=== PATIENT | male | born 1960 | race Caucasian/White ===

== ENCOUNTER 2017-08-12 12:14 | Emergency (ER) | payer SELFPAY ==
[~2017-08-12] VITALS: Ht 182.9 cm; Wt 122.5 kg
[~2017-08-12 12:14] MED LIST: AMLO10TA4; HCT25T; LISI40TA; NIAC1TBM5; OLME40TA14
[2017-08-12] MEDS ORDERED: METF1000 (12:25)
[2017-08-12] MEDS ORDERED: KETOROLAC 30 MG/ML VIAL IVP ONE (12:30)
[2017-08-12 12:33] LABS: BASOPHILS % (AUTO) 0 % (0-10); EOSINOPHILS # (AUTO) 0.1 10^3/uL (0.0-0.3); EOSINOPHILS % (AUTO) 1 % (0-10); HEMATOCRIT 43 % (40-54); HEMOGLOBIN 14.9 G/DL (13.3-17.7); LYMPHOCYTES # (AUTO) 1.6 X 10^3 (1.0-4.0); LYMPHOCYTES % (AUTO) 17 % (12-44); MEAN CORPUSCULAR HEMOGLOBIN 30 PG (25-34); MEAN CORPUSCULAR HGB CONC 35 G/DL (32-36); MEAN CORPUSCULAR VOLUME 86 FL (80-99); MEAN PLATELET VOLUME 9.6 FL (7.4-10.4); MONOCYTES # (AUTO) 0.8 X 10^3 (0.0-1.0); MONOCYTES % (AUTO) 8 % (0-12); NEUTROPHILS # (AUTO) 7.1 X 10^3 (1.8-7.8); NEUTROPHILS % (AUTO) 74 % (42-75); PLATELET COUNT 340 10^3/uL (130-400); RED BLOOD COUNT 4.92 10^6/uL (4.35-5.85); RED CELL DISTRIBUTION WIDTH 13.8 % (10.0-14.5); WHITE BLOOD COUNT 9.6 10^3/uL (4.3-11.0)
--- NOTE | 2017-08-12 12:35 | ED Upper Extremity ---
General Chief Complaint: Upper Extremity Stated Complaint: LEFT HAND PAIN/SWELLING Nursing Triage Note: AMB TO ROOM WITH C/O PAIN SWELLING IN L HAND NO INJURY Nursing Sepsis Screen: No Definite Risk History of Present Illness Date Seen by Provider: Aug 12, 2017 Time Seen by Provider: 12:29 Initial Comments Patient is a 57-year-old male who presents to emergency room today with complaints of left wrist pain. His left wrist is swollen tender to touch and pain with movement. Patient reports having similar episode of swelling and pain one month ago and he was seen by [facility] and [facility] in [place]. Patient reports not having a definite diagnosis but the symptoms did resolve within a few days and his he reports his wrist swelling returned to normal and the pain subsided. This particular episode began 2-3 days ago. No other joints are affected. No fevers or chills. No injury to the wrist. Onset: other Severity: moderate Pain/Injury Location: left wrist Method of Injury: unknown Modifying Factors: Worse With Movement Allergies and Home Medications Allergies Coded Allergies: No Known Drug Allergies (Verified Allergy, Unknown, 04/21/09) Home Medications Amlodipine Besylate 10 Mg Tablet, (Reported) Hydrochlorothiazide 25 Mg Tab, (Reported) Lisinopril 40 Mg Tablet, (Reported) Metformin HCl 1,000 Mg Tablet, (Reported) Naproxen Sodium 550 Mg Tablet, 550 MG PO BID for 10 Days, #14 Prescribed by: FALLON MCCARTNEY on 08/12/17 1338 Niacin/Simvastatin 1 Each Tbmp.24hr, (Reported) Olmesartan Medoxomil 40 Mg Tablet, (Reported) Constitutional: no symptoms reported, see HPI, No chills, No fever EENTM: see HPI, no symptoms reported Respiratory: no symptoms reported, see HPI Cardiovascular: no symptoms reported, see HPI Gastrointestinal: no symptoms reported, see HPI Genitourinary: no symptoms reported, see HPI Musculoskeletal: see HPI, joint pain, joint swelling (left wrist), other ( redness and pain to the left wrist) Skin: no symptoms reported, see HPI Psychiatric/Neurological: No Symptoms Reported, See HPI Past [id number]-Pfaack-Xgwfuy Hx Patient Social History Alcohol Use: Denies Use Recreational Drug Use: No Smoking Status: Never a Smoker Recent Foreign Travel: No Contact w/Someone Who Travel: No Recent Infectious Disease Expo: No Surgeries History of Surgeries: Yes (LUNG BIOSPY HERNIA ) Surgeries: Orthopedic Respiratory History of Respiratory Disorde: No Cardiovascular History of Cardiac Disorders: Yes Cardiac Disorders: Hypertension Neurological History of Neurological Disord: No Reproductive System Hx Reproductive Disorders: No Sexually Transmitted Disease: No Gastrointestinal History of Gastrointestinal Di: No Musculoskeletal History of Musculoskeletal Dis: No Endocrine History of Endocrine Disorders: Yes Integumentary History of Skin or Integumenta: No Blood Transfusions History of Blood Disorders: No Physical Exam Vital Signs Vital Signs - First Documented 08/12/17 12:17 Temp 98.8 Pulse 102 Resp 18 B/P (MAP) 124/92 (103) Pulse Ox 98 Capillary Refill : Less Than 3 Seconds General Appearance: WD/WN, no apparent distress HEENT: PERRL/EOMI Neck: non-tender, full range of motion Cardiovascular: normal peripheral pulses, regular rate, rhythm, no edema, no gallop, no JVD, no murmur Respiratory: chest non-tender, lungs clear, normal breath sounds, no respiratory distress Gastrointestinal: normal bowel sounds, non tender Back: normal inspection Shoulder: normal inspection, non-tender, no evidence of injury Elbow/Forearm: normal inspection, non-tender, no evidence of injury, normal ROM Wrist: Yes limited ROM, Yes pain, Yes soft tissue tenderness, Yes swelling ( normal capillary refill and sensation of the left wrist.) Hand: normal inspection, non-tender Neurologic/Tendon: normal sensation Splinting and Joint Reduction : Splints: Cock-up Wrist (applied to left wrist for support and limited mobility.) Progress/Results/Core Measures Results/Orders Lab Results Laboratory Tests Test 08/12/17 12:27 Range/Units White Blood Count 9.6 4.3-11.0 10^3/uL Red Blood Count 4.92 4.35-5.85 10^6/uL Hemoglobin 14.9 13.3-17.7 G/DL Hematocrit 43 40-54 % Mean Corpuscular Volume 86 80-99 FL Mean Corpuscular Hemoglobin 30 25-34 PG Mean Corpuscular Hemoglobin Concent 35 32-36 G/DL Red Cell Distribution Width 13.8 10.0-14.5 % Platelet Count 340 130-400 10^3/uL Mean Platelet Volume 9.6 7.4-10.4 FL Neutrophils (%) (Auto) 74 42-75 % Lymphocytes (%) (Auto) 17 12-44 % Monocytes (%) (Auto) 8 0-12 % Eosinophils (%) (Auto) 1 0-10 % Basophils (%) (Auto) 0 0-10 % Neutrophils # (Auto) 7.1 1.8-7.8 X 10^3 Lymphocytes # (Auto) 1.6 1.0-4.0 X 10^3 Monocytes # (Auto) 0.8 0.0-1.0 X 10^3 Eosinophils # (Auto) 0.1 0.0-0.3 10^3/uL Basophils # (Auto) 0.0 0.0-0.1 10^3/uL Erythrocyte Sedimentation Rate 15 0-30 MM/HR Sodium Level 137 135-145 MMOL/L Potassium Level 3.8 3.6-5.0 MMOL/L Chloride Level 103 98-107 MMOL/L Carbon Dioxide Level 24 21-32 MMOL/L Anion Gap 10 5-14 MMOL/L Blood Urea Nitrogen 16 7-18 MG/DL Creatinine 1.02 0.60-1.30 MG/DL Estimat Glomerular Filtration Rate > 60 BUN/Creatinine Ratio 16 Glucose Level 176 H 70-105 MG/DL Uric Acid 4.9 2.6-7.2 MG/DL Calcium Level 9.7 8.5-10.1 MG/DL Total Bilirubin 0.6 0.1-1.0 MG/DL Aspartate Amino Transf (AST/SGOT) 14 5-34 U/L Alanine Aminotransferase (ALT/SGPT) 15 0-55 U/L Alkaline Phosphatase 97 40-136 U/L Total Protein 7.3 6.4-8.2 GM/DL Albumin 4.1 3.2-4.5 GM/DL My Orders Orders - FALLON MCCARTNEY APRN Ketorolac Injection (Toradol Injection) (08/12/17 12:30) Cbc With Automated Diff (08/12/17 12:28) Comprehensive Metabolic Panel (08/12/17 12:28) Uric Acid (08/12/17 12:28) Wrist, Left, 3 Views Or More (08/12/17 12:28) Erythrocyte Sedimentation Rate (08/12/17 12:28) Dexamethasone Injection (Decadron Inject (08/12/17 13:30) Medications Given in ED Current Medications Medications Dose Ordered Sig/Aspen Route Start Time Stop Time Status Last Admin Dose Admin Dexamethasone Sodium Phosphate 10 mg ONCE ONCE IV 2/23/18 13:30 08/12/17 13:31 DC 08/12/17 13:31 10 MG Ketorolac Tromethamine 30 mg ONCE ONCE IVP 08/12/17 12:30 08/12/17 12:31 DC 08/12/17 12:32 30 MG Vital Signs/I&O Vital Sign - Last 12Hours 08/12/17 12:17 Temp 98.8 Pulse 102 Resp 18 B/P (MAP) 124/92 (103) Pulse Ox 98 Blood Pressure Mean: 103 Departure Impression Impression: Primary Impression: Monoarthritis of wrist Disposition: HOME, SELF-CARE Condition: Improved Departure-Patient Inst. Decision time for Depature: 13:20 Referrals: [facility] (PCP) Primary Care Physician ORTHO 4 STATES Patient Instructions: Arthritis and Exercise, SPLINT CARE Add. Discharge Instructions: Wear the splint as needed for support. Take medication as directed. Follow-up with one of the orthopedic surgeons for evaluation and further treatment in 1 week call for an appointment time on Tuesday morning. Return back to the emergency room for worsening pain, swelling, redness. Discharge instructions reviewed with patient and/or family. Voiced understanding. Scripts Naproxen Sodium (Anaprox Ds) 550 Mg Tablet 550 MG PO BID for 10 Days, #14 TAB Prov: FALLON MCCARTNEY APRN 08/12/17 Copy Copies To 1: ETIENNE NUNEZ PETER J APRN Aug 12, 2017 12:35
[2017-08-12 12:53] LABS: ALANINE AMINOTRANSFERASE 15 U/L (0-55); ALBUMIN 4.1 GM/DL (3.2-4.5); ALKALINE PHOSPHATASE 97 U/L (40-136); BILIRUBIN,TOTAL 0.6 MG/DL (0.1-1.0); BUN/CREATININE RATIO 16; CALCIUM 9.7 MG/DL (8.5-10.1); CARBON DIOXIDE 24 MMOL/L (21-32); CHLORIDE 103 MMOL/L (98-107); CREATININE SERUM 1.02 MG/DL (0.60-1.30); GFR ESTIMATED > 60; GLUCOSE 176 MG/DL (70-105); POTASSIUM 3.8 MMOL/L (3.6-5.0); SODIUM 137 MMOL/L (135-145); TOTAL PROTEIN 7.3 GM/DL (6.4-8.2); URIC ACID 4.9 MG/DL (2.6-7.2)
[2017-08-12 12:59] LABS: ERYTHROCYTE SEDIMENTATION RATE 15 MM/HR (0-30)
--- NOTE | 2017-08-12 13:08 | Diagnostic Imaging Report ---
Indication: Left wrist pain and swelling. Time of exam: 1:03 PM Findings: Three views of the left wrist were obtained. The distal radius and ulna are intact. The carpus is unremarkable. Visualized metacarpals are intact. No fractures are seen. Impression: No acute bony abnormality is detected. Dictated by: Dictated on workstation # [id number]
[2017-08-12] MEDS ORDERED: DEXAMETHASONE 4 MG/ML SDV (DECADRON) IV ONE (13:30)
[2017-08-12] MEDS ORDERED: NAPR-1070 PO (13:38)
[2017-08-12 13:48] VITALS: BP 128/72
== END 2017-08-12 13:45 | disposition home or self-care (01) ==
LOC: EDUNIT# 12:14 → ER 12:16
DX: M13.132 Monoarthritis, not elsewhere classified, left wrist (principal); I10 Essential (primary) hypertension; Z79.84 Long term (current) use of oral hypoglycemic drugs
CPT/HCPCS: 36415; 73110; 80053; 84550; 85025; 85652; 96374; 96375